=== PATIENT | male | born 1985 | race Native Hawaiian/Other Pacific Islander ===

== ENCOUNTER 2016-08-06 22:37 | Emergency (ER) | payer OTHER ==
[~2016-08-06] VITALS: Ht 182.9 cm; Wt 61.7 kg
== END 2016-08-07 00:46 | disposition home or self-care (01) ==
LOC: ED 22:37
DX: R11.2 Nausea with vomiting, unspecified (principal); R19.7 Diarrhea, unspecified
CPT/HCPCS: 96372; 99283; J2550